=== PATIENT | male | born 1985 | race Caucasian/White ===

== ENCOUNTER 2022-11-03 10:48 | Emergency (ER) | payer OTHER ==
[~2022-11-03] VITALS: Ht 190.5 cm; Wt 102.3 kg
[~2022-11-03 10:48] MED LIST: NO HOME MEDICATIONS
[2022-11-03 10:55] VITALS: BP 153/108; PULSE 61; TEMP 98
== END 2022-11-03 12:05 | disposition home or self-care (01) ==
LOC: COL.ER 10:48
DX: S93.601A Unspecified sprain of right foot, initial encounter (principal); Z28.311 Partially vaccinated for COVID-19; X50.1XXA Overexertion from prolonged static or awkward postures, initial encounter; Y92.310 Basketball court as the place of occurrence of the external cause; Y93.67 Activity, basketball